=== PATIENT | female | born 1965 | race Caucasian/White ===

== ENCOUNTER 2017-10-06 12:25 | Inpatient (IN) | payer OTHER ==
[~2017-10-06] VITALS: Ht 157.5 cm; Wt 99.5 kg
[~2017-10-06 12:25] MED LIST: DIABETA5 MG PO; ECO81 PO; GLYBURIDE5 MG PO; LAC PO; LEVAQUIN750 MG PO; LIPITOR40 MG PO; METFORMIN HCL1000 MG PO; OMEPRAZOLE40 M1 PO; PRINIVIL20 MG PO
[2017-10-06 12:33] VITALS: Ht 157.5 cm; Wt 99.5 kg
[2017-10-06 14:53] LABS: BASOPHIL % 0.2 % (0-2); PLATELET COUNT 381 x10^3mcL (130-400); RED CELL DISTRIBUTION WIDTH 13.5 % (11.5-14.5)
[2017-10-06 14:57] LABS: CALCIUM 8.7 mg/dL (8.5-10.1); CARBON DIOXIDE 22.4 mmol/L (21-32); CHLORIDE SERUM 106 mmol/L (98-107); CREATININE SERUM 0.6 mg/dL (0.6-1.0); GFR1 > 60 mL/min; GLUCOSE SERUM 152 mg/dL (74-106); SODIUM SERUM 138 mmol/L (136-145)
[2017-10-06 15:09] LABS: ALBUMIN 3.8 g/dL (3.4-5.0); ALKALINE PHOSPHATASE 92 U/L (46-116); ALT/SGPT 27 U/L (14-59); AST/SGOT 13 U/L (15-37); BILIRUBIN TOTAL 0.4 mg/dL (0.20-1.00); C REACTIVE PROTEIN 8.1 mg/dL (<=0.9)
[2017-10-06 15:12] LABS: FREE T4 0.85 ng/dL (0.76-1.46); T3 TOTAL 0.91 ng/mL
[2017-10-06 15:27] LABS: PHOSPHOROUS 3.6 mg/dL (2.5-4.9)
[2017-10-06 15:32] LABS: CK-MB 0.9 ng/mL (0-3.6)
[2017-10-06 15:43] LABS: ERYTHROCYTE SED RATE 48 mm/hr (0-30)
[2017-10-06 15:59] VITALS: BP 145/75
[2017-10-06 20:03] VITALS: BP 163/77
[2017-10-07 06:10] LABS: microscopic required? NO
[2017-10-07 06:25] VITALS: BP 140/74
[2017-10-07 06:40] LABS: BASOPHIL % 0.4 % (0-2); PLATELET COUNT 333 x10^3mcL (130-400); RED CELL DISTRIBUTION WIDTH 13.2 % (11.5-14.5)
[2017-10-07 06:55] LABS: CALCIUM 8.9 mg/dL (8.5-10.1); CARBON DIOXIDE 24.1 mmol/L (21-32); CHLORIDE SERUM 103 mmol/L (98-107); CREATININE SERUM 0.7 mg/dL (0.6-1.0); GFR1 > 60 mL/min; GLUCOSE SERUM 171 mg/dL (74-106); POTASSIUM SERUM 4.2 mmol/L (3.5-5.1); SODIUM SERUM 136 mmol/L (136-145)
[2017-10-07 07:06] LABS: UA SPECIFIC GRAVITY >=1.030 (1.005-1.035); urine erythrocyte NEGATIVE (NEGATIVE)
[2017-10-07 07:17] LABS: AMPHETAMINE QUAL UR NONE DETECTED (NEG <=1000)
[2017-10-07 09:20] VITALS: BP 128/69
[2017-10-07 12:24] VITALS: BP 148/76
[2017-10-07 17:03] VITALS: BP 114/62
[2017-10-07 20:00] VITALS: BP 123/66
[2017-10-08 05:46] VITALS: BP 113/59
[2017-10-08 06:02] LABS: BASOPHIL % 0.7 % (0-2); PLATELET COUNT 383 x10^3mcL (130-400); RED CELL DISTRIBUTION WIDTH 13.3 % (11.5-14.5)
[2017-10-08 06:25] LABS: CALCIUM 8.6 mg/dL (8.5-10.1); CARBON DIOXIDE 28.2 mmol/L (21-32); CHLORIDE SERUM 108 mmol/L (98-107); CREATININE SERUM 0.7 mg/dL (0.6-1.0); GFR1 > 60 mL/min; GLUCOSE SERUM 114 mg/dL (74-106); POTASSIUM SERUM 4.1 mmol/L (3.5-5.1); SODIUM SERUM 141 mmol/L (136-145)
[2017-10-08 09:46] VITALS: BP 109/55
[2017-10-08] MEDS ORDERED: CHLORHEXIDINE480 ML PO (13:11)
[2017-10-08] MEDS ORDERED: LEVAQUIN750 MG PO ×2 (13:12→13:14)
[2017-10-08] MEDS ORDERED: CLEOCIN HCL300 MG PO ×2 (13:12→13:13)
[2017-10-08] MEDS ORDERED: BD LACTINEX1.4 MG PO (13:13)
[2017-10-08 14:53] VITALS: BP 109/55
== END 2017-10-08 16:00 | disposition home or self-care (01) | DRG 603 ==
LOC: ED 12:25 → MU 13:41 → DU 13:41 → MU 10-07 16:20
PROVIDERS: Family Medicine; Specialist
DX: L03.211 Cellulitis of face (principal); I10 Essential (primary) hypertension; E78.00 Pure hypercholesterolemia, unspecified; E11.65 Type 2 diabetes mellitus with hyperglycemia; Z83.3 Family history of diabetes mellitus; Z82.49 Family history of ischemic heart disease and other diseases of the circulatory system
CPT/HCPCS: 83880; 84439; J1885; J1956; J2405; J2543; J3490; J7030; Q0092

== ENCOUNTER 2019-01-31 18:54 | Emergency (ER) | payer OTHER ==
[~2019-01-31] VITALS: Ht 157.5 cm; Wt 92.1 kg
[~2019-01-31 18:54] MED LIST changes: +BD LACTINEX1.4 MG PO; +CHLORHEXIDINE480 ML PO; +CLEOCIN HCL300 MG PO
[2019-01-31 19:09] VITALS: Ht 157.5 cm; Wt 92.1 kg
[2019-01-31 22:34] VITALS: BP 140/80
== END 2019-01-31 22:34 | disposition home or self-care (01) ==
LOC: ED 18:54
DX: S20.212A Contusion of left front wall of thorax, initial encounter (principal); S29.011A Strain of muscle and tendon of front wall of thorax, initial encounter; I10 Essential (primary) hypertension; E11.9 Type 2 diabetes mellitus without complications; E78.00 Pure hypercholesterolemia, unspecified; W01.0XXA Fall on same level from slipping, tripping and stumbling without subsequent striking against object, initial encounter; Y93.89 Activity, other specified; Y92.89 Other specified places as the place of occurrence of the external cause; Y99.8 Other external cause status

== ENCOUNTER 2019-12-26 15:26 | Emergency (ER) | payer MEDICAID ==
[~2019-12-26] VITALS: Ht 152.4 cm; Wt 90.7 kg
[2019-12-26 15:40] VITALS: Ht 152.4 cm; Wt 90.7 kg
[2019-12-26 17:56] VITALS: BP 146/79
== END 2019-12-26 17:56 | disposition home or self-care (01) ==
LOC: ED 15:26
DX: S61.215A Laceration without foreign body of left ring finger without damage to nail, initial encounter (principal); W26.8XXA Contact with other sharp object(s), not elsewhere classified, initial encounter; Y93.89 Activity, other specified; Y92.89 Other specified places as the place of occurrence of the external cause; Y99.8 Other external cause status
CPT/HCPCS: 90715; J2001

== ENCOUNTER 2019-12-28 14:14 | Emergency (ER) | payer MEDICAID ==
[~2019-12-28] VITALS: Ht 162.6 cm; Wt 91.6 kg
[2019-12-28 15:07] VITALS: Ht 162.6 cm; Wt 91.6 kg
[2019-12-28 16:03] VITALS: BP 143/76
== END 2019-12-28 16:03 | disposition home or self-care (01) ==
LOC: ED 14:14
DX: S61.215D Laceration without foreign body of left ring finger without damage to nail, subsequent encounter (principal); E78.00 Pure hypercholesterolemia, unspecified; I10 Essential (primary) hypertension; E11.9 Type 2 diabetes mellitus without complications; X58.XXXD Exposure to other specified factors, subsequent encounter

== ENCOUNTER 2020-01-04 08:43 | Emergency (ER) | payer MEDICAID ==
[~2020-01-04] VITALS: Ht 157.5 cm; Wt 92.1 kg
[2020-01-04 08:46] VITALS: BP 124/72; Ht 157.5 cm; Wt 92.1 kg
== END 2020-01-04 09:12 | disposition home or self-care (01) ==
LOC: ED 08:43
DX: S61.215D Laceration without foreign body of left ring finger without damage to nail, subsequent encounter (principal); I10 Essential (primary) hypertension; E11.9 Type 2 diabetes mellitus without complications; E78.00 Pure hypercholesterolemia, unspecified; W26.8XXD Contact with other sharp object(s), not elsewhere classified, subsequent encounter